=== PATIENT | male | born 1990 | race Caucasian/White ===

== ENCOUNTER 2025-03-30 13:52 | Emergency (ER) | payer OTHER ==
[~2025-03-30] VITALS: Ht 167.6 cm; Wt 81.0 kg
[2025-03-30 13:56] VITALS: O2SAT 99
[2025-03-30] MEDS: METOCLOPRAMIDE HCL 10MG/2ML VIAL IV ONE (14:30)
[2025-03-30 15:53] VITALS: BP 145/78; PULSE 80; RESP 18; TEMP 36.7; O2SAT 99
== END 2025-03-30 16:06 ==
LOC: ER 13:52
DX: R51.9 Headache, unspecified (principal); R03.0 Elevated blood-pressure reading, without diagnosis of hypertension
CPT/HCPCS: 99285; 96374; 70450; J2765